=== PATIENT | male | born 1935 | race Two or more races ===

== ENCOUNTER 2021-03-29 05:25 | Day surgery (SDC) | payer OTHER ==
[~2021-03-29 05:25] MED LIST: CRESTOR20 MG PO; DULCOLAX STOOL100 M1 PO; LIPITOR20 MG PO; NORVASC10 MG PO; PRILOSEC OTC20 MG PO
[2021-03-29] MEDS ORDERED: FLAGYL500MG PO (08:09)
[2021-03-29] MEDS ORDERED: RECTICARE30 GM TOP (08:09)
[2021-03-29] MEDS ORDERED: ULTRACET PO (08:09)
== END 2021-03-29 13:30 | disposition home or self-care (01) ==
LOC: CIR.AMB 05:25
PROVIDERS: ATTEND Surgery
DX: C20 Malignant neoplasm of rectum (principal); Z20.822 Contact with and (suspected) exposure to COVID-19